=== PATIENT | male | born 2000 | race Two or more races ===

== ENCOUNTER 2019-08-09 17:42 | Emergency (ER) | payer SELFPAY ==
[~2019-08-09] VITALS: Ht 193 cm; Wt 97.5 kg
[2019-08-09 17:53] VITALS: BP 154/90
== END 2019-08-09 18:24 | disposition left against medical advice (07) ==
LOC: ER 17:42
DX: Z53.21 Procedure and treatment not carried out due to patient leaving prior to being seen by health care provider (principal)
CPT/HCPCS: 82962

== ENCOUNTER 2021-07-05 18:58 | Emergency (ER) | payer SELFPAY ==
[~2021-07-05] VITALS: Ht 185.4 cm; Wt 99.8 kg
[2021-07-05 21:08] LABS: Basophils # (auto) 0.2 10 ^3/uL (0-0.2); Basophils % (auto) 2.3 % (0.0-2.0); Eosinophils # (auto) 0.1 10 ^3/uL (0-0.8); Eosinophils % (auto) 1.4 % (0.0-7.0); Hematocrit 40.6 % (41.0-53.0); Hemoglobin 13.9 g/dL (13.5-17.5); Lymphocytes # (auto) 1.2 10 ^3/uL (0.4-5.4); Lymphocytes % (auto) 16.7 % (10.0-50.0); Mean Corpuscular Hemoglobin 29.9 pg (28.0-32.0); Mean Corpuscular Hgb Conc. 34.3 g/dL (32.0-36.0); Mean Corpuscular Volume 87.1 fL (80.0-100.0); Monocytes # (auto) 0.6 10 ^3/uL (0-1.3); Monocytes % (auto) 8.3 % (0.0-12.0); Neutrophils # (auto) 5.1 10 ^3/uL (1.6-8.6); Neutrophils % (auto) 71.3 % (37.0-80.0); Red Blood Cells 4.66 10^6/uL (4.5-5.90); Red Cell Distribution Width 12.8 % (11.8-14.3); White Blood Cell 7.2 10^3/uL (4.4-10.8)
[2021-07-05 21:25] LABS: Albumin 3.8 g/dL (3.4-5.0); Calcium 8.9 mg/dL (8.5-10.1); Magnesium 2.4 mg/dL (1.6-2.6); Potassium 3.7 mmol/L (3.5-5.1)
[2021-07-05 21:31] LABS: BUN/Creatinine Ratio 8.6; Bilirubin, Total 1.2 mg/dL (0.2-1.0); Total Protein 6.6 g/dL (6.4-8.2)
[2021-07-05] MEDS ORDERED: BACITRACIN TOP OINT 1 UD PKG TOP ONE ×2 (22:30→22:31)
[2021-07-05 22:51] VITALS: BP 125/56
== END 2021-07-05 22:53 | disposition home or self-care (01) ==
LOC: ER 19:00
DX: R55 Syncope and collapse (principal); N17.9 Acute kidney failure, unspecified; F12.10 Cannabis abuse, uncomplicated; F14.10 Cocaine abuse, uncomplicated
CPT/HCPCS: 36415; 71045; 80053; 83735; 83880; 84484; 85025; 93005